=== PATIENT | male | born 1960 | race Caucasian/White ===

== ENCOUNTER → 2017-01-02 | Outpatient (CLI) | payer MEDICAID ==
--- NOTE | 2017-01-02 11:10 | RADIOLOGY REPORT PS360 ---
[id number] VIEWS HISTORY: Left shoulder pain TENDINITIS OF LEFT ROTATOR CUFF ORDERING PHYSICIAN: Holly JJ PATIENT AGE: 56 years COMPARISON: None FINDINGS: No fracture or dislocation. No lytic or blastic change. There is normal mineralization. There is mild subacromial stenosis which may result in impingement symptomatology. Mild calcification is present in the inferolateral acromial region superior to the humeral head consistent with calcific tendinitis. The glenohumeral joint has an unremarkable appearance. IMPRESSION: 1. 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
== END ==
LOC: RAD 10:11
DX: M75.82 Other shoulder lesions, left shoulder (principal)